=== PATIENT | male | born 1975 | race Caucasian/White ===

== ENCOUNTER 2018-10-26 17:13 | Emergency (ER) | payer OTHER, SELFPAY ==
[2018-10-26] MEDS ORDERED: Ketorolac Tromethamine 30 MG/ML VIAL ONE (17:39)
[2018-10-26 17:51] LABS: #Lymphocytes 0.8 thou/uL (1.20-3.40); #Monocytes 0.4 thou/uL (0.11-0.59); #Neutrophils 12.1 thou/uL (1.40-6.50); %Basophils 0.3 % (0.0-1.0); %Eosinophils 0.2 % (0.0-10.0); %Lymphocytes 5.7 % (21.0-51.0); %Neutrophils 90.7 % (42.0-75.0); Hemoglobin 15.1 g/dL (14.0-18.0); Mean Corpuscular HGB CONC 32.5 g/dL (32.0-36.0); Mean Corpuscular Hemoglobin 32.6 pg (27.0-31.0); Mean Platelet Volume 7.5 fL (7.4-10.4); Platelet Count 218 thou/uL (130-400); RBC Distribution Width 12.1 % (11.5-14.5); Red Blood Cell (RBC) Count 4.63 mill/uL (4.70-6.10); White Blood Cell (WBC) Count 13.4 thou/uL (4.8-10.8)
[2018-10-26 18:00] LABS: Clarity Clear (Clear)
[2018-10-26 18:01] LABS: ALT (SGPT) 31 U/L (8-55); AST (SGOT) 19 U/L (5-34); Albumin 4.4 g/dL (3.5-5.0); Alkaline Phosphatase 66 U/L (40-150); Anion Gap 15 mmol/L (10-20); BUN (Urea Nitrogen) 9 mg/dL (8.9-20.6); Bilirubin, Total 0.6 mg/dL (0.2-1.2); Calc. Creatinine Clearance 0 mL/min (70-130); Calcium 9.6 mg/dL (7.8-10.44); Carbon Dioxide 25 mmol/L (22-29); Chloride 101 mmol/L (98-107); Estimated GFR-MDRD 77; Globulin 3.6 g/dL (2.4-3.5); Glucose 117 mg/dL (70-105); Lipase 29 U/L (8-78); Sodium 137 mmol/L (136-145)
[2018-10-26 18:01] LABS: Bacteria/HPF None Seen HPF (None Seen); Bilirubin Negative (Negative); Blood, Urine Trace (Negative); Broad Cast None Seen LPF (None Seen); Calcium Oxalate Crystals None Seen HPF (None Seen); Cellular Cast None Seen LPF (None Seen); Epithelial Cast None Seen LPF (None Seen); Fatty Cast None Seen LPF (None Seen); Glucose, Urine (Dipstick) Negative (Negative); Leukocyte Negative (Negative); Mucous/LPF None Seen LPF (<2+); Nitrite Negative (Negative); Other Casts None Seen LPF (None Seen); Oval Fat Bodies/HPF None Seen HPF (None Seen); Protein, Urine (Dipstick) Trace mg/dL (Neg-Trace); RBC/HPF 0-3 HPF (0-3); Red Blood Cell Cast None Seen LPF (None Seen); Renal Epithelial None Seen HPF (None Seen); Sperm/HPF None Seen HPF (None Seen); Squamous Epithelial None Seen HPF (0-3); Transitional Epithelial None Seen HPF (None Seen); Trichomonas/HPF None Seen HPF (None Seen); Triple Phosphate Crystal None Seen HPF (None Seen); Unclassified Crystals None Seen HPF (None Seen); Urobilinogen 0.2 mg/dL (Less than 2); WBC/HPF None Seen HPF (0-3); Waxy Cast None Seen LPF (None Seen); White Blood Cell Cast None Seen LPF (None Seen); Yeast-Budding None Seen HPF (None Seen); Yeast-Hyphae None Seen HPF (None Seen)
[2018-10-26 18:03] LABS: Potassium 4.1 mmol/L (3.5-5.1)
[2018-10-26] MEDS ORDERED: Acetaminophen 500 MG TAB ONE (18:47)
--- NOTE | 2018-10-26 20:56 | RAD ---
ABDOMEN TWO VIEWS: 10/26/18 No free air is seen beneath the diaphragm on the upright study. An air fluid level or two is seen in the small bowel, but overall there are no greatly distended loops to suggest obstruction. I might won yaritza if there might be a little bit of wall thickening in the transverse colon, but this is an equivoc al finding. If the patient does not improve over time, then a CT would be recommended to help rule ou t colitis. Pelvic calcifications appear to be phleboliths. No calcifications of concern were seen. IMPRESSION: Equivocal thickening of some of the loops of transverse colon. If he does not improve with current tr eatment, then a CT to rule out colitis might be needed. Code T POS: HOME
== END 2018-10-26 18:53 | disposition home or self-care (01) ==
LOC: BURERS 17:13
DX: K52.9 Noninfective gastroenteritis and colitis, unspecified (principal); F17.220 Nicotine dependence, chewing tobacco, uncomplicated
CPT/HCPCS: 74019; 80053; 81003; 81015; 83605; 83690; 84484; 85025; 87040; 93005; 96361; 96372; 96374; J0500; J1885